=== PATIENT | female | born 1940 | race Caucasian/White ===

== ENCOUNTER 2017-03-31 09:15 | Outpatient (CLI) | payer OTHER | END 2017-03-31 09:24 | disposition home or self-care (01) | LOC: LAB 09:15 | DX: C90.30 Solitary plasmacytoma not having achieved remission (principal); C90.00 Multiple myeloma not having achieved remission; D63.1 Anemia in chronic kidney disease; N18.3 Chronic kidney disease, stage 3 (moderate); D51.3 Other dietary vitamin B12 deficiency anemia; B02.29 Other postherpetic nervous system involvement; I10 Essential (primary) hypertension; E08.65 Diabetes mellitus due to underlying condition with hyperglycemia; E08.42 Diabetes mellitus due to underlying condition with diabetic polyneuropathy; G62.89 Other specified polyneuropathies ==

== ENCOUNTER 2017-06-16 09:18 | Outpatient (CLI) | payer OTHER | END 2017-06-16 09:23 | disposition home or self-care (01) | LOC: LAB 09:18 | DX: C90.30 Solitary plasmacytoma not having achieved remission (principal); C90.00 Multiple myeloma not having achieved remission; D63.1 Anemia in chronic kidney disease; N18.3 Chronic kidney disease, stage 3 (moderate); D51.3 Other dietary vitamin B12 deficiency anemia; B02.29 Other postherpetic nervous system involvement; I10 Essential (primary) hypertension; E08.65 Diabetes mellitus due to underlying condition with hyperglycemia; E08.42 Diabetes mellitus due to underlying condition with diabetic polyneuropathy; D51.0 Vitamin B12 deficiency anemia due to intrinsic factor deficiency; D51.1 Vitamin B12 deficiency anemia due to selective vitamin B12 malabsorption with proteinuria; D50.8 Other iron deficiency anemias; G62.89 Other specified polyneuropathies ==

== ENCOUNTER 2017-10-20 09:28 | Outpatient (CLI) | payer OTHER | END 2017-10-20 09:33 | disposition home or self-care (01) | LOC: LAB 09:28 | DX: C90.30 Solitary plasmacytoma not having achieved remission (principal); C90.00 Multiple myeloma not having achieved remission; D63.1 Anemia in chronic kidney disease; N18.3 Chronic kidney disease, stage 3 (moderate); D51.3 Other dietary vitamin B12 deficiency anemia; B02.29 Other postherpetic nervous system involvement; I10 Essential (primary) hypertension; E08.65 Diabetes mellitus due to underlying condition with hyperglycemia; E08.42 Diabetes mellitus due to underlying condition with diabetic polyneuropathy; G62.89 Other specified polyneuropathies; D50.8 Other iron deficiency anemias; D51.8 Other vitamin B12 deficiency anemias; K90.89 Other intestinal malabsorption ==

== ENCOUNTER 2018-04-09 13:06 | Emergency (ER) | payer OTHER ==
[~2018-04-09] VITALS: Ht 160 cm; Wt 63.5 kg
[2018-04-09] MEDS ORDERED: IRBESARTAN-HCT1 EACH PO (13:21)
[2018-04-09] MEDS ORDERED: GLUMETZA500 MG PO (13:21)
[2018-04-09] MEDS ORDERED: PLAVIX75 MG PO (13:22)
[2018-04-09] MEDS ORDERED: NEURONTIN600 MG (13:22)
[2018-04-09] MEDS ORDERED: ZANTAC300 MG (13:22)
[2018-04-09] MEDS ORDERED: IRBESARTAN-HCT1 EACH (13:22)
[2018-04-09] MEDS ORDERED: REVLIMID5 MG PO (13:23)
== END 2018-04-09 22:39 | disposition home or self-care (01) ==
LOC: ER 13:06
DX: K52.89 Other specified noninfective gastroenteritis and colitis (principal)

== ENCOUNTER → 2018-05-28 | Outpatient (CLI) | payer OTHER ==
[~2018-05-28] MED LIST: GLUMETZA500 MG PO; IRBESARTAN-HCT1 EACH; IRBESARTAN-HCT1 EACH PO; NEURONTIN600 MG; PLAVIX75 MG PO; REVLIMID5 MG PO; ZANTAC300 MG
== END | disposition home or self-care (01) ==
LOC: NUCLEAR 07:00
DX: I25.10 Atherosclerotic heart disease of native coronary artery without angina pectoris (principal); I11.9 Hypertensive heart disease without heart failure; I65.23 Occlusion and stenosis of bilateral carotid arteries
CPT/HCPCS: 78452; 93017; 93306; 93880; A9500; J0153

== ENCOUNTER 2018-06-19 10:03 | Outpatient (CLI) | payer OTHER | END 2018-06-19 16:30 | disposition home or self-care (01) | LOC: LAB 10:03 | DX: C90.30 Solitary plasmacytoma not having achieved remission (principal); D63.1 Anemia in chronic kidney disease; N18.3 Chronic kidney disease, stage 3 (moderate); D51.3 Other dietary vitamin B12 deficiency anemia; B02.29 Other postherpetic nervous system involvement; I10 Essential (primary) hypertension; E08.65 Diabetes mellitus due to underlying condition with hyperglycemia; E08.42 Diabetes mellitus due to underlying condition with diabetic polyneuropathy; G62.89 Other specified polyneuropathies ==

== ENCOUNTER 2018-09-28 09:26 | Outpatient (CLI) | payer OTHER | END 2018-09-28 09:35 | disposition home or self-care (01) | LOC: LAB 09:26 | DX: C90.30 Solitary plasmacytoma not having achieved remission (principal); D63.1 Anemia in chronic kidney disease; D51.3 Other dietary vitamin B12 deficiency anemia; B02.29 Other postherpetic nervous system involvement; I10 Essential (primary) hypertension; E08.65 Diabetes mellitus due to underlying condition with hyperglycemia; E08.42 Diabetes mellitus due to underlying condition with diabetic polyneuropathy; G62.89 Other specified polyneuropathies; D50.8 Other iron deficiency anemias; D51.8 Other vitamin B12 deficiency anemias ==

== ENCOUNTER 2019-03-27 10:01 | Outpatient (CLI) | payer OTHER | END 2019-03-27 10:09 | disposition home or self-care (01) | LOC: LAB 10:01 | DX: C90.30 Solitary plasmacytoma not having achieved remission (principal); D63.1 Anemia in chronic kidney disease; N18.3 Chronic kidney disease, stage 3 (moderate); D51.3 Other dietary vitamin B12 deficiency anemia; B02.29 Other postherpetic nervous system involvement; E08.65 Diabetes mellitus due to underlying condition with hyperglycemia; E08.42 Diabetes mellitus due to underlying condition with diabetic polyneuropathy; G62.89 Other specified polyneuropathies; D50.8 Other iron deficiency anemias; D51.8 Other vitamin B12 deficiency anemias; E55.9 Vitamin D deficiency, unspecified; K90.89 Other intestinal malabsorption ==

== ENCOUNTER 2019-08-09 10:02 | Emergency (ER) | payer OTHER ==
[~2019-08-09] VITALS: Ht 162.6 cm; Wt 60.3 kg
[2019-08-09] MEDS ORDERED: PEPCID AC20 MG (10:17)
[2019-08-09] MEDS ORDERED: LOSARTAN-HCTZ1 EAC2 PO (10:17)
== END 2019-08-09 15:37 | disposition home or self-care (01) ==
LOC: ER 10:02
DX: M54.5 Low back pain (principal); R10.813 Right lower quadrant abdominal tenderness

== ENCOUNTER 2020-02-13 10:06 | Outpatient (CLI) | payer OTHER ==
[~2020-02-13 10:06] MED LIST changes: +LOSARTAN-HCTZ1 EAC2 PO; +PEPCID AC20 MG
== END 2020-02-13 10:12 | disposition home or self-care (01) ==
LOC: LAB 10:06
PROVIDERS: ATTEND Internal Medicine Hematology & Oncology
DX: D50.8 Other iron deficiency anemias (principal); R79.89 Other specified abnormal findings of blood chemistry; D47.2 Monoclonal gammopathy; I10 Essential (primary) hypertension; R74.02 Elevation of levels of lactic acid dehydrogenase [LDH]; K76.89 Other specified diseases of liver; C90.30 Solitary plasmacytoma not having achieved remission; D63.1 Anemia in chronic kidney disease; D51.3 Other dietary vitamin B12 deficiency anemia; B02.29 Other postherpetic nervous system involvement; E08.65 Diabetes mellitus due to underlying condition with hyperglycemia; E08.42 Diabetes mellitus due to underlying condition with diabetic polyneuropathy; G62.89 Other specified polyneuropathies

== ENCOUNTER 2021-10-24 10:05 | Emergency (ER) | payer OTHER ==
[~2021-10-24] VITALS: Ht 157.5 cm; Wt 56.7 kg
[2021-10-24] MEDS ORDERED: ISOSORBIDE MONO60 MG PO (10:28)
[2021-10-24] MEDS ORDERED: TOPROL XL50 M1 PO (10:29)
[2021-10-24] MEDS ORDERED: JANUVIA50 MG PO (10:29)
[2021-10-24] MEDS ORDERED: NEURONTIN300 MG (10:29)
== END 2021-10-24 13:08 | disposition home or self-care (01) ==
LOC: ER 10:05
DX: N39.0 Urinary tract infection, site not specified (principal); Z88.6 Allergy status to analgesic agent; Z88.1 Allergy status to other antibiotic agents; Z85.79 Personal history of other malignant neoplasms of lymphoid, hematopoietic and related tissues

== ENCOUNTER 2021-10-28 14:35 | Emergency (ER) | payer OTHER ==
[~2021-10-28] VITALS: Ht 157.5 cm; Wt 56.7 kg
[~2021-10-28 14:35] MED LIST changes: +ISOSORBIDE MONO60 MG PO; +JANUVIA50 MG PO; +NEURONTIN300 MG; +TOPROL XL50 M1 PO
== END 2021-10-29 12:58 | disposition home or self-care (01) ==
LOC: ER 14:35
DX: C79.51 Secondary malignant neoplasm of bone (principal); C90.00 Multiple myeloma not having achieved remission; E11.9 Type 2 diabetes mellitus without complications; Z79.84 Long term (current) use of oral hypoglycemic drugs; Z88.6 Allergy status to analgesic agent; Z88.8 Allergy status to other drugs, medicaments and biological substances; I10 Essential (primary) hypertension